=== PATIENT | female | born 1995 | race African-American/Black ===

== ENCOUNTER 2017-09-01 01:58 | Emergency (ER) | payer OTHER ==
[2017-09-01] MEDS ORDERED: NS 0.9% 1000 ML*IV.FLUID IV ONE (06:09)
[2017-09-01] MEDS ORDERED: Piperacillin/Tazobac ADVAN(*) 3.375 GM in NS 0.9% 100 ML* 100 ML IVPB ONE (06:11)
[2017-09-01] MEDS ORDERED: Acetaminophen TAB* 325 MG PO ONE (06:12)
[2017-09-01] MEDS ORDERED: Ketorolac INJ* 30 MG/ML 1 ML VIAL IV PUSH ONE (06:12)
--- NOTE | 2017-09-01 06:55 | ED ---
Marilyn Amanda Gabriel, scribAnnabelle Terrell MD on 09/01/17 at 0550 . HPI Febrile Illness - HPI Summary HPI Summary: This patient is a 21 year old F presenting to [facility] with a chief complaint of a febrile illness that began 5 days ago. The patient rates the pain 7/10 in severity. Patient reports headache, sore throat, and fever. Patient denies v/d. Pt had a severe toothache she is just getting over. - History of Current Complaint Chief Complaint: EDFever Time Seen by Provider: 09/01/17 05:37 Hx Obtained From: Patient Onset/Duration: Started Days Ago - 5, Still Present Temperature: 100.5 F Initial Severity: Moderate Current Severity: Moderate Pain Intensity: 7 Pain Scale Used: 0-10 Numeric Associated Signs and Symptoms: Sore Throat, Other: - headache, sore throat, and fever - Allergy/Home Medications Allergies/Adverse Reactions: Allergies Allergy/AdvReac Type Severity Reaction Status Date / Time No Known Allergies Allergy Verified 09/01/17 02:03 PMH/Surg Hx/FS Hx/Imm Hx Respiratory History: Denies: Hx Bronchopulmonary Dysplasia, Hx Chronic Obstructive Pulmonary Disease (COPD), Hx Cystic Fibrosis GI History: Denies: Hx Diverticulosis, Hx Gall Bladder Disease, Hx Gastrointestinal Bleed Sensory History: Denies: Hx Cataracts, Hx Eye Injury Psychiatric History: Denies: Hx Oppositional [place] Disorder, Hx Panic Disorder Infectious Disease History: No Infectious Disease History: Denies: Traveled Outside the [place] in Last 30 Days - Family History Known Family History: Positive: Diabetes - Social History Occupation: Student Lives: Dormitory/Roommates Alcohol Use: Occasionally Hx Substance Use: No Substance Use Type: Reports: None Hx Tobacco Use: No Smoking Status (MU): Never Smoked Tobacco Review of Systems Positive: Fever Positive: Sore Throat Negative: Vomiting, Diarrhea Positive: Headache All Other Systems Reviewed And Are Negative: Yes Physical Exam - Summary Physical Exam Summary: VITAL SIGNS: Reviewed. GENERAL: Patient is a well-developed and nourished femalewho is lying comfortable in the stretcher. Patient is not in any acute respiratory distress. HEAD AND FACE: No signs of trauma. No ecchymosis, hematomas or skull depressions. No sinus tenderness. EYES: PERRLA, EOMI x 2, No injected conjunctiva, no nystagmus. EARS: Hearing grossly intact. Ear canals and tympanic membranes are within normal limits. MOUTH: pharyngeal erythema with some tonsillar exudate NECK: Supple, trachea is midline, no adenopathy, no JVD, no carotid bruit, no c- spine tenderness, neck with full ROM. CHEST: Symmetric, no tenderness at palpation LUNGS: Clear to auscultation bilaterally. No wheezing or crackles. CVS: Regular rate and rhythm, S1 and S2 present, no murmurs or gallops appreciated. ABDOMEN: Soft, non-tender. No signs of distention. No rebound no guarding, and no masses palpated. Bowel sounds are normal. EXTREMITIES: FROM in all major joints, no edema, no cyanosis or clubbing. NEURO: Alert and oriented x 3. No acute neurological deficits. Speech is normal and follows commands. SKIN: Dry and warm Triage Information Reviewed: Yes Vital Signs On Initial Exam: Initial Vitals Temp Pulse Resp BP Pulse Ox 100.5 F 115 20 132/82 99 09/01/17 02:00 09/01/17 02:00 09/01/17 02:00 09/01/17 02:00 09/01/17 02:00 Vital Signs Reviewed: Yes Diagnostics - Vital Signs Vital Signs Temp Pulse Resp BP Pulse Ox 09/01/17 04:14 100.4 F 107 117/95 100 09/01/17 02:00 100.5 F 115 20 132/82 99 - Laboratory Lab Statement: Any lab studies that have been ordered have been reviewed, and results considered in the medical decision making process. Course/Dx - Course Assessment/Plan: This patient is a 21 year old F presenting to [facility] with a chief complaint of a febrile illness that began 5 days ago. The patient rates the pain 7/10 in severity. Patient reports headache, sore throat, and fever. Patient denies v/d. Pt had a severe toothache she is just getting over. Pt will be signed out to Dr. Espinal awaiting labs and disposition. - Diagnoses Provider Diagnoses: Sore throat Discharge - Discharge Plan Condition: Fair Disposition: OTHER Discharge Disposition Comment: signed out to Dr. Espinal Referrals: No Primary Care Phys,NOPCP [Primary Care Provider] - The documentation as recorded by the Marilyn lopez Gabriel accurately reflects the service I personally performed and the decisions made by , Annabelle Geller MD.
[2017-09-01 07:43] LABS: ABS Basophils 0 10^3/ul (0-0.2); ABS Eosinophils 0 10^3/ul (0-0.6); ABS Lymphocytes 1.6 10^3/ul (1.0-4.8); ABS Monocytes 1.2 10^3/ul (0-0.8); ABS Neutrophils 8.2 10^3/ul (1.5-7.7); ABS Nucleated RBC 0 10^3/ul; Eosinophil % 0.1 % (0-6); Hematocrit 34 % (35-47); Hemoglobin 11.5 g/dl (12.0-16.0); Lymphocyte % 14.8 % (25-47); Mean Corpuscular HGB Conc 34 g/dl (31-36); Mean Corpuscular Hemoglobin 29 pg (27-31); Mean Corpuscular Volume 84 fL (80-97); Mean Platelet Volume 7 um3 (7.4-10.4); Nucleated Red Blood Cells % 0.1; Platelet Count 284 10^3/ul (150-450); Red Blood Count 4.05 10^6/ul (4.0-5.4); Red Cell Distribution Width 14 % (10.5-15); White Blood Count 11.1 10^3/ul (3.5-10.8)
[2017-09-01 07:59] LABS: EGFR Non-African American 89.8 (>60)
[2017-09-01] MEDS ORDERED: NS 0.9% 100 ML* 100 ML ONE (07:59)
[2017-09-01 08:48] LABS: Urine Appearance Clear; Urine Blood Negative (Negative); Urine Color Yellow; Urine Ketones Trace (Negative); Urine Protein Negative (Negative); Urine Specific Gravity 1.023 (1.010-1.030); Urine Urobilinogen Negative (Negative)
[2017-09-01 12:16] VITALS: BP 114/78
--- NOTE | 2017-09-02 00:31 | ED ---
Mitchell Amanda Stephanie, scribed for Jo Espinal MD on 09/01/17 at 0705 . Progress - Progress Note Progress Note: This pt is a sign out from Dr. Geller at shift change at 07:00. Over the weekend , the pt had a severe toothache and she went to [facility] and was prescribed 800 mg of ibuprofen. Pt states she developed a BRITO, intermittent fever 100.4 F, sore throat and mouth pain. The pt was given ibuprofen at 18:00 yesterday while at the ED. The pt denies hx of mononucleosis. Course/Dx - Course Course Of Treatment: The pt was given zosyn 3.75 mg ketorolac IV 30 mg in the ER. The pt is negative for influenza, strep throat, and mononucleosis. - Diagnoses Provider Diagnoses: Sore throat, Dental abscess The documentation as recorded by the Mitchell lopez Stephanie accurately reflects the service I personally performed and the decisions made by , Jo Espinal MD.
== END 2017-09-01 12:17 | disposition home or self-care (01) ==
LOC: ED 01:58
DX: J02.9 Acute pharyngitis, unspecified (principal); K04.7 Periapical abscess without sinus
CPT/HCPCS: 36415; 80053; 81003; 83605; 84484; 84702; 85025; 86308; 87040; 87502; 87651; 96374; 99284; A9270-GY; J1885; J2543

== ENCOUNTER 2019-03-17 03:18 | Emergency (ER) | payer OTHER ==
--- NOTE | 2019-03-17 04:15 | ED ---
Neck Pain - HPI Summary HPI Summary: This pt is a 23 Y/O F presenting to [facility] with a CC of L sided neck pain that was present from when she woke up to 2100 03/16/19. She states that the worse of the pain was present at 0200 03/17/19 and was rated a 9/10. She states that has increased pain when she swallows. She denied any N/V/D, fevers, chills, sore throat, headaches, and CP. She stated that she had no alleviating symptoms. She has increased pain with opening her mouth, palpation, and swallowing. She states that she was using Ibuprofen and icea at home which was not helpful. She has no pertinent PMHx. - History of Current Complaint Chief Complaint: EDNeckComplaint Stated Complaint: NECK PAIN PER EMS Time Seen by Provider: 03/17/19 03:20 Hx Obtained From: Patient Onset/Duration Of Injury/Symptoms: Days - 1 Mechanism Of Injury: No Known Trauma Timing: Constant Onset/Duration: Sudden Onset, Started days ago - 1, Still Present, Worse Since - 02003/17/19 Severity Initially: Moderate Severity Currently: Severe Pain Intensity: 9 Pain Scale Used: 0-10 Numeric Location: Discrete At: - L neck Aggravating Factors: Position, Movement, Other: - swallowing Alleviating Factors: Nothing Associated Signs & Symptoms: Positive: Negative - N/V/D, chills, sore throat, and CP.. Negative: Fever, Headache - Allergies/Home Medications Allergies/Adverse Reactions: Allergies Allergy/AdvReac Type Severity Reaction Status Date / Time No Known Allergies Allergy Verified 09/01/17 02:03 PMH/Surg Hx/FS Hx/Imm Hx Previously Healthy: Yes Respiratory History: Denies: Hx Bronchopulmonary Dysplasia, Hx Chronic Obstructive Pulmonary Disease (COPD), Hx Cystic Fibrosis GI History: Denies: Hx Diverticulosis, Hx Gall Bladder Disease, Hx Gastrointestinal Bleed Sensory History: Denies: Hx Cataracts, Hx Eye Injury Opthamlomology History: Denies: Hx Cataracts, Hx Eye Injury Psychiatric History: Denies: Hx Oppositional [place] Disorder, Hx Panic Disorder - Immunization History Immunizations Up to Date: Yes Infectious Disease History: No Infectious Disease History: Denies: Traveled Outside the [place] in Last 30 Days - Family History Known Family History: Positive: Diabetes - Social History Alcohol Use: Occasionally Hx Substance Use: No Substance Use Type: Reports: None Hx Tobacco Use: No Smoking Status (MU): Never Smoked Tobacco Review of Systems Negative: Fever, Chills ENT: Other - POSITIVE: L sided neck pain Negative: Sore Throat Negative: Chest Pain Negative: Shortness Of Breath Negative: Abdominal Pain, Vomiting, Diarrhea, Nausea Negative: Headache All Other Systems Reviewed And Are Negative: Yes Physical Exam - Summary Physical Exam Summary: General: Well-developed, Well-nourished (MALE/FEMALE). No acute distress. HEENT: Normocephalic, Atraumatic. Eyes: Conjuctiva normal, PERRL. Ears: TMs within normal limits. Nares: (-) discharge, (-) erythema. Oropharynx: Clear, mucous membranes moist, (-) exudates. Neck: Soft, FROM, (-) lymphadenopathy, (-) thyromegaly, (-) JVD. Tenderness of the L sternocleidomastoid muscle, liited ROM secondary to pain Cardiovascular: Normal sinus rhythm, (-) murmur. Lungs: Clear to auscultation bilaterally (-) wheezes, (-) rales, (-) rhonchi. Abdomen: Soft, non-tender, non-distended, (-) organomegaly, normal bowel sounds. Back: (-) CVA tenderness Extremities: No edema. Skin: Warm, dry, (-) rash. Neuro: Alert and oriented x3, no focal deficits. Psychiatric: Mood normal, affect normal. Triage Information Reviewed: Yes Vital Signs On Initial Exam: Initial Vitals Pulse Resp BP Pulse Ox 81 23 134/84 99 03/17/19 03:24 03/17/19 03:24 03/17/19 03:24 03/17/19 03:24 Vital Signs Reviewed: Yes Diagnostics - Vital Signs Vital Signs Temp Pulse Resp BP Pulse Ox 03/17/19 03:54 78 27 141/87 100 03/17/19 03:31 97.5 F 75 22 134/84 100 03/17/19 03:25 89 17 100 03/17/19 03:24 81 23 134/84 99 - Laboratory Lab Statement: Any lab studies that have been ordered have been reviewed, and results considered in the medical decision making process. - Radiology Cervical spie X-Ray Radiology Interpretation Completed By: ED Physician Summary of Radiographic Findings: No acute processes. Pending offical review. Neck Course/Dx - Course Course Of Treatment: This pt is a 23 Y/O F presenting to [facility] with a CC of L sided neck pain that was present from when she woke up to 2100 03/16/19. She states that the worse of the pain was present at 0200 03/17/19 and was rated a 9/ 10. She denied any N/V/D, fevers, chills, sore throat, headaches, and CP. Her PE found that she had Tenderness of the L sternocleidomastoid muscle, liited ROM secondary to pain. Her cervical spine X-Ray showed no acute processes. She will be discharged home with a Dx of neck muscle spasm. She was informed to take 2 tabs of Ibuprofen 3 times a day with food and to use ice and rest. - Diagnoses Differential Dx/HQI/PQRI: Positive: Dystonia Provider Diagnoses: Neck muscle spasm Discharge ED - Sign-Out/Discharge Documenting (check all that apply): Patient Departure - discharge Patient Received Moderate/Deep Sedation with Procedure: No - Discharge Plan Condition: Stable Disposition: HOME Patient Education Materials: Muscle Spasm (ED) Referrals: [facility] [Outside] - 2 Days Additional Instructions: PLEASE RETURN TO THE EMERGENCY DEPARTMENT FOR ANY NEW OR WORSENING SYMPTOMS. [facility] with [facility] in 1-3 days. Take 2 tablets of Ibuprofen 3 times a day at every meal. Use heat and ice around the area to control the swelling. - Attestation Statements Document Initiated by Scribe: Yes Documenting Scribe: Anthony Holt Provider For Whom Scribe is Documenting (Include Credential): Rosy Rehman MD Scribe Attestation: Anthony Amanda, scribed for Rosy Rehman MD on 03/17/19 at 0601. Status of Scribe Document: Ready
[2019-03-17] MEDS ORDERED: Ketorolac INJ* 30 MG/ML 1 ML VIAL IM ONE (04:17)
[2019-03-17 06:22] VITALS: BP 122/86
== END 2019-03-17 06:18 | disposition home or self-care (01) ==
LOC: ED 03:18
DX: M62.838 Other muscle spasm (principal); M54.2 Cervicalgia
CPT/HCPCS: 72040; 96372; 99282; J1885

== ENCOUNTER 2019-08-19 19:58 | Emergency (ER) | payer OTHER ==
[2019-08-19] MEDS ORDERED: oxyCODONE/Acetamin 5/325 MG* TAB PO ONE (21:11)
--- NOTE | 2019-08-19 21:13 | ED ---
Throat Pain/Nasal Congestion - HPI Summary HPI Summary: 23-year-old female presents with dental pain for the past couple days. She saw her dentist and they placed her on amoxicillin. She took two doses. He states that the pain has increased. States that she's been taking ibuprofen every 4 hours 600mgs. the pain has since decreased. She denies any fevers. No increase in swelling. No chest or shortness of breath. No pain or swelling around her eyes. No fevers. Has no medical conditions. - History of Current Complaint Chief Complaint: EDDentalPain Time Seen by Provider: 08/19/19 20:37 - Allergies/Home Medications Allergies/Adverse Reactions: Allergies Allergy/AdvReac Type Severity Reaction Status Date / Time No Known Allergies Allergy Verified 08/19/19 20:05 PMH/Surg Hx/FS Hx/Imm Hx Endocrine/Hematology History: Denies: Hx Anticoagulant Therapy Respiratory History: Denies: Hx Bronchopulmonary Dysplasia, Hx Chronic Obstructive Pulmonary Disease (COPD), Hx Cystic Fibrosis GI History: Denies: Hx Diverticulosis, Hx Gall Bladder Disease, Hx Gastrointestinal Bleed Sensory History: Denies: Hx Cataracts, Hx Eye Injury Opthamlomology History: Denies: Hx Cataracts, Hx Eye Injury Psychiatric History: Denies: Hx Oppositional [place] Disorder, Hx Panic Disorder Infectious Disease History: No Infectious Disease History: Denies: Traveled Outside the [place] in Last 30 Days - Family History Known Family History: Positive: Diabetes - Social History Alcohol Use: Rare Hx Substance Use: No Substance Use Type: Reports: None Hx Tobacco Use: No Smoking Status (MU): Never Smoked Tobacco Review of Systems Negative: Fever Positive: Dental Pain Negative: Chest Pain Negative: Shortness Of Breath All Other Systems Reviewed And Are Negative: Yes Physical Exam Triage Information Reviewed: Yes Vital Signs On Initial Exam: Initial Vitals Temp Pulse Resp BP Pulse Ox 97.2 F 91 15 127/92 95 08/19/19 20:04 08/19/19 20:04 08/19/19 20:04 08/19/19 20:04 08/19/19 20:04 Vital Signs Reviewed: Yes Appearance: Positive: Well-Appearing Skin: Positive: Warm, Dry Head/Face: Positive: Normal Head/Face Inspection Eyes: Positive: Normal, EOMI, ELIAN, Conjunctiva Clear ENT: Positive: Pharynx normal, TMs normal Dental: Positive: Percussion Tenderness @ - right lower jaw, Gross Decay/Caries @. Negative: Abscess @ Respiratory/Lung Sounds: Positive: Clear to Auscultation, Breath Sounds Present Cardiovascular: Positive: Normal, RRR Musculoskeletal: Positive: Normal Neurological: Positive: Normal Psychiatric: Positive: Normal Procedures - Sedation Patient Received Moderate/Deep Sedation with Procedure: No Diagnostics - Vital Signs Vital Signs Temp Pulse Resp BP Pulse Ox 08/19/19 20:04 97.2 F 91 15 127/92 95 - Laboratory Lab Statement: Any lab studies that have been ordered have been reviewed, and results considered in the medical decision making process. EENT Course/Dx - Course Course Of Treatment: 23-year-old female presents with dental pain for the past couple days. She saw her dentist and they placed her on amoxicillin. She took two doses. He states that the pain has increased. States that she's been taking ibuprofen every 4 hours 600mgs. the pain has since decreased. She denies any fevers. No increase in swelling. No chest or shortness of breath. No pain or swelling around her eyes. No fevers. Has no medical conditions. On exam has tenderness over right lower dental pain. No abscess noted. Will give lidocaine to place on the area. Told to take Tylenol in addition and limit amount of ibuprofen. told to follow up with dentist. Patient understands and agrees the plan. - Differential Diagnoses Differential Diagnoses: Corneal Abrasion, Dental Abscess, Fractured Tooth - Diagnoses Provider Diagnoses: Tooth infection Discharge ED - Sign-Out/Discharge Documenting (check all that apply): Patient Departure - Discharge Plan Condition: Good Disposition: HOME Prescriptions: Lidocaine 2% VISCOUS* [Xylocaine 2% Viscous*] 5 ml SWISH SPIT Q4H #1 btl Patient Education Materials: Toothache (ED) Referrals: No Primary Care Phys,NOPCP [Primary Care Provider] - Additional Instructions: add on tyenlol 500mg every 6 hours for pain along with ibuprofen 600mg every 6 hours for pain apply lidocaine to area up to 8 times a day take antibiotic as prescribed follow up with dentist Return to ED if develop any new or worsening symptoms - Billing Disposition and Condition Condition: GOOD Disposition: Home
[2019-08-19 21:24] VITALS: BP 129/88
== END 2019-08-19 21:23 | disposition home or self-care (01) ==
LOC: ED 19:58
DX: K04.7 Periapical abscess without sinus (principal)
CPT/HCPCS: 99282; A9270-GY